=== PATIENT | male | born 1950 | race Caucasian/White ===

== ENCOUNTER → 2016-05-05 | Outpatient (CLI) | payer OTHER | END | disposition home or self-care (01) | LOC: GMAB 10:47 | PROVIDERS: ATTEND Family Medicine | DX: T84.84XA Pain due to internal orthopedic prosthetic devices, implants and grafts, initial encounter (principal) ==

== ENCOUNTER → 2016-10-19 | Outpatient (CLI) | payer BC | END | disposition home or self-care (01) | LOC: GMAB 11:00 | PROVIDERS: ATTEND Family Medicine | DX: M17.11 Unilateral primary osteoarthritis, right knee (principal); Z00.00 Encounter for general adult medical examination without abnormal findings ==

== ENCOUNTER → 2017-07-04 | Outpatient (CLI) | payer BC | LOC: GMAB 12:22 | PROVIDERS: ATTEND Family Medicine | DX: Z00.00 Encounter for general adult medical examination without abnormal findings (principal) ==

== ENCOUNTER → 2017-08-09 | Outpatient (CLI) | payer BC, OTHER ==
--- NOTE | 2017-08-09 13:55 | CT ---
EXAM DESCRIPTION: CT left ankle CLINICAL HISTORY: Ankle fracture. Pain and deformity COMPARISON: None Available. TECHNIQUE: Spiral CT with multiplanar reformatted images. 3-D reconstructions This exam was performed according to our departmental dose-optimization program, which includes automated exposure control, adjustment of the mA and/or kV according to patient size and/or use of iterative reconstruction technique. FINDINGS: Coronal oriented fracture distal tibia epiphysis and metaphysis at the junction of middle and anterior thirds tibial plafond with intra-articular extension. Maximum separation between the fracture fragment and the remainder of the tibia is about 4-5 mm There is a somewhat triangular shaped dye punch impaction component along the lateral plafond about 11 mm greatest anteroposterior and 17 mm transverse axial series 2 image 39, sagittal reformat series 401 image 20. Maximum impaction 1-2 mm. Joint effusion without intra-articular body. No fracture of the fibula, talus or calcaneus or other tarsal bones Small well-corticated plantar calcaneal spur. Calcaneal enthesophyte Achilles tendon attachment. Chronic fusiform Achilles tendinosis. No other tendon abnormality. Os naviculare Advanced arthrosis between the dorsal mid navicular and the middle cuneiform with multifocal subchondral cystic change and joint line osteophytes IMPRESSION: Coronal oriented fracture across the tibial plafond with a wedge-shaped dye punch component Electronically signed by: Rene Baeza MD 08/09/2017 1:54 PM CDT
== END ==
LOC: CT 10:29
PROVIDERS: ATTEND Orthopaedic Surgery
DX: M19.071 Primary osteoarthritis, right ankle and foot (principal); S82.875A Nondisplaced pilon fracture of left tibia, initial encounter for closed fracture; M77.41 Metatarsalgia, right foot; M67.01 Short Achilles tendon (acquired), right ankle

== ENCOUNTER 2018-03-15 05:31 | Day surgery (SDC) | payer MEDICARE, OTHER ==
--- NOTE | 2018-03-13 11:17 | RAD ---
Procedure: XR CHEST 2 VIEWS Exam Date: 03/13/2018 Ordering Provider: Tyson Hernandez Clinical Indication: PRE OP Comparison: 01/10/2018 Findings: Prior cardiac valve replacement. Cardiomediastinal silhouette is within normal limits. No focal lung consolidation. Scarring in the right midlung and at the right costophrenic angle. No pleural effusion. No pneumothorax. No acute osseous abnormality. Impression: 1. No acute abnormality in the chest. Electronically signed by: Emeka Masters MD 03/13/2018 11:16 AM [facility]
[2018-03-15] MEDS ORDERED: SODIUM CHL 0.9% 100ML MINI-BAG 100 ML IVPB ONE (07:10)
[2018-03-15] MEDS ORDERED: LACTATED RINGERS 1,000 ML ONE (07:10)
[2018-03-15] MEDS ORDERED: ceFAZolin SODIUM 1 GM VIAL ONE (07:11)
[2018-03-15] MEDS ORDERED: BUPIVACAINE 0.25% W/EPI 50 ML VIAL INJ ONE (07:14)
[2018-03-15] MEDS ORDERED: METOCLOPRAMIDE HCL INJ 10 MG/2 ML VIAL ONE (08:00)
[2018-03-15] MEDS ORDERED: raNITIdine HCL INJ 25 MG/ML VIAL ONE (08:00)
[2018-03-15] MEDS ORDERED: PHENYLEPHRINE INJ 1ML 10 MG/ML VIAL ONE (08:00)
[2018-03-15] MEDS ORDERED: SODIUM CHLORIDE 0.9% 50 ML VIAL ONE (08:00)
[2018-03-15] MEDS ORDERED: LIDOCAINE 1% 10 ML VIAL INJ ONE (08:00)
[2018-03-15] MEDS ORDERED: DEXAMETHASONE INJ 10 MG/ML VIAL ONE (08:00)
[2018-03-15] MEDS ORDERED: PROPOFOL 200 MG/20 ML VIAL IV ONE (08:00)
[2018-03-15] MEDS ORDERED: ePHEDrine SULF 50 MG/ML ONE (08:00)
[2018-03-15] MEDS ORDERED: fentaNYL CITRATE INJ 50 MCG/ML AMP ONE (08:10)
[2018-03-15] MEDS ORDERED: MIDAZOLAM INJ 2 MG/2 ML VIAL ONE (08:10)
[2018-03-15] MEDS ORDERED: ACETAMINOPHEN IV 1000MG 100 ML ONE (09:24)
[2018-03-15] MEDS ORDERED: HYDROmorphone HCL INJ 2 MG/ML VIAL ONE (09:24)
[2018-03-15 12:24] VITALS: BP 119/73; TEMP 97.1; O2SAT 97
[2018-03-15] MEDS ORDERED: ONDANSETRON INJ 4 MG/2 ML VIAL ONE (12:59)
--- NOTE | 2018-03-15 13:13 | OP ---
DATE OF PROCEDURE: 03/15/18 PREOPERATIVE DIAGNOSIS: 1. Left inguinal hernia. 2. Umbilical hernia. POSTOPERATIVE DIAGNOSIS: 1. Left inguinal hernia. 2. Umbilical hernia. PROCEDURE: 1. Repair of left inguinal hernia and umbilical hernia with Surgimesh grafts. SURGEON: Tyson Hernanedz MD. CONTRACT PARALEGAL: None. ANESTHESIA: General laryngeal mask and local infiltration of 0.25% Marcaine with epinephrine. INDICATION: The patient is a healthy 67-year-old male who has had a reducible hernia in his groin and at his umbilicus for some time. They have become increasingly uncomfortable, but there has been no significant problem with incarceration or strangulation. The patient was brought to the Surgical Suite today for repair of each after the risks, benefits and alternatives to the procedure were discussed and accepted. FINDINGS: The patient had a large indirect hernia on the left. The floor of the canal was intact. The femoral canal had no defect. There was both omentum in the canal and reducible in the hernia sac. The inguinal hernia contained omentum. The defect was approximately 1.5 by 0.5 cm in diameter. No other pathology was identified. PROCEDURE: After adequate general laryngeal mask anesthesia was obtained, the patient was prepped and draped in the usual sterile manner. At this point, a surgical time-out was taken. The left inguinal area was infiltrated with local anesthesia. The skin was incised with a sharp knife and dissection was carried down through the skin and subcutaneous tissue to the external oblique fascia using electrocautery and blunt dissection. The self-retaining retractor was placed at this level. The external oblique fascia was then incised in the direction of the fibers through the external inguinal ring. At this point, the self-retaining retractor was placed at this level. The cord was dissected free from the floor of the canal and and a half inch Wallace drain was placed around it for traction. The cord was then explored with the omentum that was around the hernia sac and the hernia sac dissected free from the cord contents. When this was done, it was also noted that the nerve was dissected free and retracted anteriorly. When this was done, a Surgimesh patch was introduced under the floor of the canal and internal ring and sutured circumferentially with interrupted 2-0 Vicryl sutures. When this was done, hemostasis was noted to be adequate. At this point, The Surgimesh patch was sutured around the cord again with interrupted 2-0 Vicryl sutures. At this point, the cord was irrigated with saline. The nerve and the cord were placed back in position in the canal. The external oblique fascia was then closed with running 3-0 Vicryl suture. The cord and subcutaneous tissue above, below and lateral to the incision were all infiltrated with local anesthesia. The Pieter's fascia was approximated with interrupted 3-0 Chromic suture. Skin edges were approximated with skin stapler. A towel was then placed over the left inguinal incision. At this point, the infraumbilical area was infiltrated with local anesthesia. A curvilinear incision was fashioned and carried down through the subcutaneous tissue to the midline fascia. The hernia was identified. It was dissected free circumferentially at the level of the fascia. When this was done, it was dissected free circumferentially and then incised at its neck at the level of the fascia. It was then dissected free from the hernia sac and reduced below the fascia. The fascia was then reapproximated with 4 [id number] sutures of #1 PDS. These were placed sequentially and then tightened and tied sequentially. When this was done, the wound was irrigated with saline. The subcutaneous fat was dissected free off the abdominal wall fascia in a football shaped area. An approximately 7.5 by 5 cm oval mesh was then introduced and sewn over the repair with interrupted 2-0 Prolene and Vicryl sutures. When this was done, again hemostasis was noted to be adequate. The wound was irrigated with saline, then the umbilicus was sutured to the fascia and mesh with a single [id number] suture of 2-0 Prolene. The subcutaneous tissues were then closed with interrupted 2-0 and 3-0 Vicryl and the skin edges were approximated with a skin stapler. Sterile pressure dressings were applied to both wounds. The testicle was checked for position in the scrotum. An abdominal binder was placed. The patient was awakened and taken to the Recovery Room in stable condition. Estimated blood loss was less than 100 mL for both procedures. All sponge, needle and instrument counts were correct. [facility][id number] [facility]
== END 2018-03-15 13:35 | disposition home or self-care (01) ==
LOC: AMB 05:31
PROVIDERS: ATTEND Surgery
DX: K40.90 Unilateral inguinal hernia, without obstruction or gangrene, not specified as recurrent (principal); K42.9 Umbilical hernia without obstruction or gangrene; K21.9 Gastro-esophageal reflux disease without esophagitis; J44.9 Chronic obstructive pulmonary disease, unspecified; M10.9 Gout, unspecified; M19.90 Unspecified osteoarthritis, unspecified site; I45.10 Unspecified right bundle-branch block; Z95.2 Presence of prosthetic heart valve; Z87.891 Personal history of nicotine dependence; Z85.46 Personal history of malignant neoplasm of prostate; Z79.82 Long term (current) use of aspirin; Z79.84 Long term (current) use of oral hypoglycemic drugs; Z79.899 Other long term (current) drug therapy
CPT/HCPCS: 00830; 36415; 49505; 49585; 71046; 80053; 81001; 85025; 93005; A4216; C1781; J0690; J1100; J1170; J2250; J2405; J2765; J2780; J3010; J3490; J7050; J7120

== ENCOUNTER → 2018-08-23 | Outpatient (CLI) | payer MEDICARE, OTHER | LOC: GMAJ 12:41 | PROVIDERS: ATTEND Family Medicine | DX: Z12.5 Encounter for screening for malignant neoplasm of prostate (principal); Z79.899 Other long term (current) drug therapy ==

== ENCOUNTER 2019-02-13 05:27 | Day surgery (SDC) | payer MEDICARE, OTHER ==
[2019-02-13] MEDS ORDERED: PROPOFOL 200 MG/20 ML VIAL IV ONE (07:00)
[2019-02-13] MEDS ORDERED: DEXAMETHASONE INJ 10 MG/ML VIAL ONE (07:00)
[2019-02-13] MEDS ORDERED: raNITIdine HCL INJ 25 MG/ML VIAL ONE (07:00)
[2019-02-13] MEDS ORDERED: LIDOCAINE 1% 10 ML VIAL INJ ONE (07:00)
[2019-02-13] MEDS ORDERED: KETOROLAC TROMETHAMINE INJ 30 MG/ML VIAL ONE (07:00)
[2019-02-13] MEDS ORDERED: LACTATED RINGERS 1,000 ML ONE (07:02)
[2019-02-13] MEDS ORDERED: SODIUM CHL 0.9% 100ML MINI-BAG 100 ML IVPB ONE (07:09)
[2019-02-13] MEDS ORDERED: ceFAZolin SODIUM 1 GM VIAL ONE (07:09)
[2019-02-13] MEDS ORDERED: LACTATED RINGERS 1,000 ML IVS ONE (10:30)
[2019-02-13] MEDS ORDERED: BUPIVACAINE 0.25% W/EPI 50 ML VIAL INJ ONE (10:38)
[2019-02-13] MEDS ORDERED: MIDAZOLAM INJ 2 MG/2 ML VIAL ONE (11:33)
[2019-02-13] MEDS ORDERED: fentaNYL CITRATE INJ 50 MCG/ML AMP ONE (11:33)
[2019-02-13] MEDS ORDERED: KETAMINE HCL 100 MG/ML VIAL ONE (11:33)
[2019-02-13] MEDS ORDERED: BUPIVACAINE 0.5% W/EPI 30 ML VIAL INJ ONE (11:36)
[2019-02-13 13:05] VITALS: BP 115/65; O2SAT 99
--- NOTE | 2019-02-13 13:50 | OP ---
DATE OF PROCEDURE: 02/13/19 PREOPERATIVE DIAGNOSIS: 1. Right inguinal hernia. POSTOPERATIVE DIAGNOSIS: 1. Right inguinal hernia. PROCEDURE: 1. Repair of right inguinal hernia. 2. Removal of 4 cm retroperitoneal tumor. 3. Ilioinguinal nerve block for postoperative pain control. SURGEON: Dom Lopez MD. ANESTHESIA: General and local. FINDINGS: There is a moderate sized indirect hernia as well as a large cord lipoma. COMPLICATIONS: None. ESTIMATED BLOOD LOSS: Minimal. CONDITION: Stable. PLAN: Discharge. INDICATION: As stated. PROCEDURE: General anesthesia was induced. He was prepped and draped in sterile fashion. 0.5% Marcaine with epinephrine was used at the incision site as well as performing an ilioinguinal nerve block based on the ASIS and 3 mL injected. Incision was made. Subcutaneous tissue was taken down. The external oblique aponeurosis was identified. A small carolyn was made. It was opened along its fibers. The nerve was directly identified and dissected out and kept superior out of harm's way. The cord was isolated. There was fatty bulk in the proximal area. This was dissected out. It was a large cord lipoma. This was ligated at its base and removed. We then identified a sac. It was dissected off the cord. There was a lot of chronic stricture. The sac was then reduced. We then entered the preperitoneal plane and kept the epigastric vessels anterior with an [place]. We then dissected out the preperitoneal plane with moist Raytec sponges and finger sweep. Once this was completed, the large PHS mesh which was trimmed inferiorly was placed internally, cut was made and wrapped around the cord, non-stricturing. It was secured to the shelving edge and at the tubercle. At this point, the nerve was released and placed over the mesh superiorly. The mesh was laid out laterally underneath the external oblique. It was lying nice and flat with a good repair. The external oblique was then closed with a running 2-0 Vicryl with care not to incorporate the nerve. Everything looked good. The wound was then closed in two additional layers. Dressing was applied. The patient was awakened and taken to Recovery to be discharged. [facility][id number] [facility]
[2019-02-14 07:34] VITALS: TEMP 97.3
== END 2019-02-13 14:15 | disposition home or self-care (01) ==
LOC: AMB 05:27
PROVIDERS: ATTEND Surgery
DX: K40.90 Unilateral inguinal hernia, without obstruction or gangrene, not specified as recurrent (principal); D17.6 Benign lipomatous neoplasm of spermatic cord; G89.18 Other acute postprocedural pain; Z85.46 Personal history of malignant neoplasm of prostate; Z79.82 Long term (current) use of aspirin; Z96.653 Presence of artificial knee joint, bilateral
CPT/HCPCS: 00830; 36415; 49505; 64450; 80048; 85025; 88302; 93005; J0690; J1100; J1885; J2250; J2780; J3010; J3490; J7050; J7120

== ENCOUNTER 2019-07-22 14:06 | Emergency (ER) | payer MEDICARE, OTHER ==
--- NOTE | 2019-07-22 15:23 | ED.PDOC ---
History of Present Illness - General Chief Complaint: Headache Stated Complaint: headache Time Seen by Provider: 07/22/19 15:18 Source: patient, RN notes reviewed, Vital Signs reviewed Exam Limitations: no limitations - History of Present Illness Initial Comments: Patient is a 69-year-old white male who presents with complaints of right eye pain and headache. This is been ongoing for a few weeks but has progressively become worse in intensity as well as frequency. A few weeks ago patient noted he was having these searing stabbing pains in his right eye and right head once a day lasting just a second or 2. Over the ensuing weeks this is become multiple times per day but still lasts only 1 second at a time. The pain does not radiate. The pain is severe in intensity. There is no associated symptoms of nausea, vomiting, blurry vision, dizziness, visual field changes with this pain. Timing/Duration: increasing Quality: severe, sharp, stabbing Head Injury Location: frontal Recent Head Trauma: no recent headache/trauma Improving Factors: nothing Worsening Factors: nothing Associated Symptoms: denies symptoms Allergies/Adverse Reactions: Allergies NO KNOWN ALLERGY Allergy (Verified 02/04/19 13:22) Home Medications: Ambulatory Orders Aspirin [Aspirin EC] 81 mg PO DAILY 04/26/14 Multiple Vitamins W/ Minerals [Vision Vitamins] 1 tab PO DAILY 02/04/19 Prochlorperazine Tab [Compazine Tab] 10 mg PO Q6H #12 tab 07/22/19 Review of Systems - Review of Systems Constitutional: States: no symptoms reported, see HPI EENTM: States: see HPI, eye pain Respiratory: States: no symptoms reported Cardiology: States: no symptoms reported Gastrointestinal/Abdominal: States: no symptoms reported Genitourinary: States: no symptoms reported Musculoskeletal: States: no symptoms reported Skin: States: no symptoms reported Neurological: States: see HPI, headache Endocrine: States: no symptoms reported Hematologic/Lymphatic: States: no symptoms reported All other Systems: Reviewed and Negative Past Medical History (General) - Patient Medical History Hx Seizures: No Hx Stroke: No Hx Asthma: No Hx of COPD: No Hx Cardiac Disorders: Yes - Mitral valve prolapse. Hx Congestive Heart Failure: No Hx Pacemaker: No Hx Hypertension: No Hx Diabetes: No Hx Gastroesophageal Reflux: No Hx Cancer: Yes - prostate Hx MRSA: No - Vaccination History Hx Tetanus, Diphtheria Vaccination: Yes Hx Influenza Vaccination: Yes Hx Pneumococcal Vaccination: Yes Immunizations Up to Date: Yes - Social History Hx Tobacco Use: No Hx Alcohol Use: No Hx Substance Use: No Hx Substance Use Treatment: No Hx Depression: No Hx Physical Abuse: No Hx Emotional Abuse: No - Female History Patient : No - Triage Comment ED Triage Comment: Sent to ER by PCP. Family Medical History - Family History Mother Family History: Unknown Living Status: Age at (years of age): 72 Cause of : cancer Hx Family Asthma: No Hx Family Congestive Heart Failure: No Hx Family Hypertension: No Hx Family Stroke: No Hx Cardiac Disease: No Hx Family Diabetes: No Hx Family Cancer: Yes Physical Exam - Physical Exam General Appearance: Alert, Comfortable, No apparent distress, Well Developed, Well Groomed, Well Hydrated, Well Nourished Eyes, Ears, Nose, Throat Exam: PERRL/EOMI, normal ENT inspection, TMs normal, pharynx normal Neck: non-tender, full range of motion, supple, normal inspection, trachea midline Cardiovascular/Chest: normal peripheral pulses, regular rate, rhythm, no edema, no gallop, no JVD, no murmur Respiratory: chest non-tender, lungs clear, normal breath sounds, no respiratory distress Gastrointestinal/Abdominal: normal bowel sounds, non tender, soft Back Exam: normal inspection, no CVA tenderness, no vertebral tenderness Extremity: normal range of motion, non-tender, normal inspection Mental Status: alert, oriented x 3 air/ocean export clerk Exam: normal hearing, normal speech, PERRL Coordination/Gait: normal finger to nose, normal gait, negative Romberg's sign Motor/Sensory: no motor deficit, no sensory deficit, no pronator drift Skin Exam: warm/dry, normal color Lymphatic: no adenopathy Progress - Progress Progress: Differential diagnosis: CVA, TIA, vertebrobasilar artery insufficiency, temporal artery insufficiency among others. 07/22/19 15:25 Patient's headaches have resolved while he has been here. I have reassured him that he can follow-up with his PCP for referral to a neuro life cycle assessment analyst. I have recommended MRI. Patient voices understanding and agreement with plan of care. Plan on discharge home with a prescription for Compazine to help with the headaches. Raj Kingsley M.D. #[id number] Departure - Departure Clinical Impression: Left eye pain Headache Qualifiers: Headache type: unspecified Headache chronicity pattern: acute headache Intractability: not intractable Qualified Code(s): R51 - Headache Time of Disposition: 15:28 Disposition: Discharge to Home or Self Care Condition: Good Departure Forms: ED Discharge - Pt. Copy, Patient Portal Self Enrollment Diet: resume usual diet Activity: increase activity as tolerated Referrals: Dom Hinson MD [Primary Care Provider] - 1-5 Days Prescriptions: Prochlorperazine Tab [Compazine Tab] 10 mg PO Q6H #12 tab Home Medications: Ambulatory Orders Aspirin [Aspirin EC] 81 mg PO DAILY 04/26/14 Multiple Vitamins W/ Minerals [Vision Vitamins] 1 tab PO DAILY 02/04/19 Prochlorperazine Tab [Compazine Tab] 10 mg PO Q6H #12 tab 07/22/19
== END 2019-07-22 15:37 | disposition home or self-care (01) ==
LOC: ER 14:06
DX: R51 Headache (principal); H57.12 Ocular pain, left eye; Z79.82 Long term (current) use of aspirin

== ENCOUNTER → 2019-07-23 | Outpatient (CLI) | payer MEDICARE, OTHER ==
--- NOTE | 2019-07-23 16:26 | MRI ---
EXAM DESCRIPTION: Brain w/o Contrast: MRI. CLINICAL HISTORY: TENSION TYPE HEADACHE UNSPEC NOT INTRACTABLE COMPARISON: CT scan of the head April 2006. TECHNIQUE: Multiplanar, high-field MRI unit, multiple diffusion sequences, multiple conventional sequences without contrast. FINDINGS: Bilateral hyperintense foci of FLAIR and T2-weighted signal in the left frontal lobe white matter of the anterior left frontal lobe and the posterior right frontal lobe; both lesions above the ventricle level. Also in the inferior subcortical bilateral anterior frontal lobes. No obvious lesions in the bilateral lobes and occipital lobes. Hyperintense periventricular process similarly signal in the left frontal lobe abutting the left frontal horn. No other significant periventricular white matter signal abnormalities.. No hemorrhage, no cerebral edema, no midline shift.. Normal signal in the bilateral basal ganglia. Question of a small focal hyperintense T1 and T2 focal lesion in the junction of the left cerebellar hemisphere and superior cerebellar peduncles, just lateral to the fourth ventricle. Normal signal in the remaining brainstem and cerebellar hemispheres structures with no hemorrhage, no cerebral edema, no mass-effect. Concordance of the diffusion and non-diffusion sequences with no diffusion restriction. Cortical sulci, ventricles, and other CSF spaces, and the subdural spaces are normally configured for the patient's age. No effacement or displacement. No midline shift. No extra-axial hemorrhage. Normal flow signal void in the major vessels of the [place], and the venous sinuses. Left vertebral artery is dominant compared to the right. Mass effect on the left hemisphere of the medulla in the brainstem. IACs are symmetric bilaterally. Normal signal in the bilateral mastoid air cells. No mass effect in the bilateral cerebellopontine angles. Pituitary gland occupies most of the sella. Base of the cerebellar tonsils is at the level the foramen magnum. Marked mucoperiosteal thickening in the left frontal air cells and bilateral mucoperiosteal thickening in the maxillary antra. No air-fluid levels.. The bony calvarium is intact. IMPRESSION: 1. Multiple foci of white matter signal change predominantly in the subcortical white matter of the frontal lobes bilaterally. This could be related to cerebral microvascular disease or age-related changes. Other vascular into these such as vasculitis and migraine headaches should be considered. Also focal lesion in the left cerebellar hemisphere abutting the left fourth ventricle near the brainstem. Demyelinating process is less likely but if this is suspected, consider follow-up study with gadolinium IV contrast. 2. The dominant left vertebral artery is impressing on the left hemisphere of the brain stem medulla, but no signal change seen in the medulla. 3. Chronic paranasal pansinusitis. Electronically signed by: Mian Florence MD 07/23/2019 4:24 PM CDT
== END ==
LOC: LAB.O 09:18
PROVIDERS: ATTEND Family Medicine
DX: G44.209 Tension-type headache, unspecified, not intractable (principal); J32.4 Chronic pansinusitis; R90.82 White matter disease, unspecified; G93.9 Disorder of brain, unspecified